=== PATIENT | female | born 1990 | race Caucasian/White ===

== ENCOUNTER 2018-04-04 21:37 | Inpatient (IN) | payer BC ==
[~2018-04-04] VITALS: Ht 165.1 cm; Wt 65.8 kg
[2018-04-04 22:36] LABS: *BILIRUBIN,URIN NEGATIVE (NEGATIVE); *BLOOD, URINE 2+ (NEGATIVE); *CLARITY,URINE SLIGHTLY CLOUDY (CLEAR); *COLOR,URINE YELLOW (YELLOW); *KETONES,URINE NEGATIVE (NEGATIVE); *PROTEIN,URINE NEGATIVE (NEGATIVE); *UROBILINOGEN,URINE 0.2 E.U./dl (NORMAL); LEUKOCYTE ESTERASE ,URINE TRACE (NEGATIVE); NITRITE, URINE POSITIVE (NEGATIVE); PH,URINE 5.5 (5.0-8.0); UGLUCOSE NEGATIVE (NEGATIVE)
[2018-04-04 22:49] LABS: *URINE HCG, QUAL NEGATIVE (NEGATIVE)
[2018-04-04 22:56] LABS: BACTERIA,URINE MANY /HPF (NONE SEEN); SQUAMOUS EPITHELIAL CELL,UR MANY /HPF (NONE SEEN); WBC,URINE 20-50 /HPF (0-3)
[2018-04-04 22:57] LABS: RENAL EPITHELIAL CELLS,URINE FEW /LPF (NONE SEEN)
--- NOTE | 2018-04-04 23:15 | NUR ---
Dr. Maciel at bedside for MSE.
[2018-04-04] MEDS ORDERED: MORPHINE SULFATE 2 MG/1 ML DISP.SYRIN IV ONE (23:30)
[2018-04-04] MEDS ORDERED: IV NORMAL SALINE 1000 ML BAG IV ONE (23:30)
[2018-04-04] MEDS ORDERED: ONDANSETRON 4 MG/2 ML VIAL IV ONE (23:30)
[2018-04-04] MEDS ORDERED: MORPHINE SULFATE 4 MG/1 ML DISP.SYRIN ONE (23:39)
[2018-04-04] MEDS ORDERED: ONDANSETRON 4 MG/2 ML VIAL ONE (23:39)
[2018-04-04 23:58] LABS: BASOPHILS % (AUTO) 0.4 % (0.0-2.0); EOSINOPHILS % (AUTO) 0.4 % (0.0-7.0); HEMATOCRIT 40.6 % (31.2-41.9); HEMOGLOBIN 13.4 g/dL (10.9-14.3); LYMPHOCYTES # (AUTO) 2.6 K/uL (20.0-40.0); LYMPHOCYTES % (AUTO) 20.8 % (20.5-51.5); MEAN CORPUSCULAR HEMOGLOBIN 28.2 uug (24.7-32.8); MEAN CORPUSCULAR HGB CONC 33 g/dL (32.3-35.6); MEAN CORPUSCULAR VOLUME 85.2 fL (75.5-95.3); MONOCYTES # (AUTO) 0.9 K/uL (2.0-10.0); MONOCYTES % (AUTO) 7.4 % (0.0-11.0); NEUTROPHILS # (AUTO) 8.9 K/uL (1.8-8.9); PLATELET COUNT (AUTO) 265 K/uL (179-408); RED BLOOD CELL COUNT(AUTO) 4.76 MIL/uL (3.63-4.92); WHITE BLOOD COUNT (AUTO) 12.6 K/uL (3.8-11.8)
[2018-04-05] MEDS ORDERED: SWABABLE VALVE TRANSFER SET EA MC ONE (00:03)
[2018-04-05] MEDS ORDERED: IV NORMAL SALINE 250 ML IV ONE (00:04)
[2018-04-05] MEDS ORDERED: IOHEXOL 300MG/ML 100 ML INFUS..BTL ONE (00:04)
--- NOTE | 2018-04-05 00:20 | NUR ---
Pt out of ER for CT.
[2018-04-05 00:35] LABS: CREATININE 0.8 mg/dL (0.6-1.3); POTASSIUM 3.7 mmol/L (3.5-5.1)
[2018-04-05 00:40] LABS: BILIRUBIN,DIRECT 0.2 mg/dL (0.0-0.2); BILIRUBIN,TOTAL 0.8 mg/dL (0.2-1.0); TOTAL PROTEIN, SERUM 8.4 g/dL (6.4-8.2)
--- NOTE | 2018-04-05 00:40 | NUR ---
Pt back to ER for CT.
--- NOTE | 2018-04-05 02:01 | NUR ---
Dr. Maciel on panel call with Piedad Jernigan NP
[2018-04-05] MEDS ORDERED: birth contro PO (02:06)
--- NOTE | 2018-04-05 02:50 | NUR ---
Report given to charge nurse Nati. Martinez
[2018-04-05 03:12] VITALS: BP 108/68
--- NOTE | 2018-04-05 03:30 | NUR ---
Received patient via gurney awake alert & oriented no SOB denies chest pain. Placed on bed comfortably, vital signs are WNL. Admission assessment initiated, patient still c/o abdominal pain 8/10 pain level. Paged Piedad Jernigan for admission orders.
--- NOTE | 2018-04-05 04:00 | NUR ---
Re-paged Piedad Jernigan NP for admission orders. Patient c/o abdominal pain.
[2018-04-05] MEDS ORDERED: HYDROMORPHONE 1 MG/1 ML DISP.SYRIN IV PRN (04:15)
[2018-04-05] MEDS: HYDROMORPHONE 2 MG/1 ML DISP.SYRIN IV PRN ×5 (04:31→21:18)
--- NOTE | 2018-04-05 04:32 | NUR ---
Dilaudid 1mg IVP adm.
[2018-04-05] MEDS ORDERED: ACETAMINOPHEN 325 MG TABLET PO PRN (05:30)
[2018-04-05] MEDS ORDERED: Z GUARD REMEDY PASTE 57 GM TUBE TOP PRN (05:30)
[2018-04-05] MEDS ORDERED: MAGNESIUM HYDROXIDE 30 ML LIQUID UDC PO PRN (05:30)
[2018-04-05] MEDS ORDERED: ONDANSETRON 4 MG/2 ML VIAL IV PRN (05:30)
[2018-04-05 05:33] VITALS: BP_SYST 100; BP_DIAS 55; BP_DIAS 59
[2018-04-05] MEDS: IV D5/ 0.9% NACL 1,000 ML IV PRN (05:40)
[2018-04-05] MEDS ORDERED: PIPERACILLIN/TAZOBACTAM/D5W 50 ML IV ONE (05:44)
[2018-04-05] MEDS: PIPERACILLIN/TAZOBACTAM/D5W 3.375 G in PREMIXED 1 EACH IV SCH ×3 (05:54→21:18)
--- NOTE | 2018-04-05 06:00 | NUR ---
Sleeping comfortably. Zosyn 3.375 gm IVPB started. Afebrile.
[2018-04-05 06:58] LABS: BASOPHILS # (AUTO) 0.1 K/uL (0.0-8.0); BASOPHILS % (AUTO) 0.6 % (0.0-2.0); EOSINOPHILS # (AUTO) 0.1 K/uL (0.0-0.7); HEMATOCRIT 33.1 % (31.2-41.9); HEMOGLOBIN 11.5 g/dL (10.9-14.3); LYMPHOCYTES # (AUTO) 2.4 K/uL (20.0-40.0); LYMPHOCYTES % (AUTO) 23.8 % (20.5-51.5); MEAN CORPUSCULAR HEMOGLOBIN 29.3 uug (24.7-32.8); MEAN CORPUSCULAR HGB CONC 35 g/dL (32.3-35.6); MEAN CORPUSCULAR VOLUME 84.4 fL (75.5-95.3); MONOCYTES # (AUTO) 1.1 K/uL (2.0-10.0); MONOCYTES % (AUTO) 10.6 % (0.0-11.0); NEUTROPHILS # (AUTO) 6.4 K/uL (1.8-8.9); PLATELET COUNT (AUTO) 223 K/uL (179-408); RED BLOOD CELL COUNT(AUTO) 3.92 MIL/uL (3.63-4.92)
[2018-04-05 07:07] LABS: CREATININE 0.8 mg/dL (0.6-1.3); MAGNESIUM 1.8 mg/dL (1.8-2.4); PHOSPHOROUS 3.7 mg/dL (2.5-4.9); POTASSIUM 3.8 mmol/L (3.5-5.1)
--- NOTE | 2018-04-05 08:00 | NUR ---
AWAKE ALERT ANXIOUS NO PAIN OR N/V AT THIS TIME RESTING IN BED WITH CALL LIGHT IN REACH KEEP NPO EXCEPT MEDICINE CONTINUE IVF
--- NOTE | 2018-04-05 09:00 | NUR ---
C/O OF ABD PAIN MEDICATION PRN GIVEN ORDER
--- NOTE | 2018-04-05 10:00 | NUR ---
DR LYLES WAS INFORM OF PATIENT WAS VERY ANXIOUS AND WOULD LIKE TO SPEAK WITH ,HE WAS AWARE AND WAITING FOR CT ABD AND PELVIS RESULT .X RAY WAS CALL TO GET RESULT L[place]
[2018-04-05 11:33] VITALS: BP 111/60
--- NOTE | 2018-04-05 13:30 | NUR ---
DR LYLES SEEN PATIENT THIS AFTERNOON AND CONSULT SURGEON /GI MD TO SEE PATIENT
[2018-04-05] MEDS ORDERED: ETHI1TAB20 PO (14:07)
--- NOTE | 2018-04-05 15:00 | NUR ---
SAMSON HAMMER ADJUSTER FOR DR NELSON WAS SEEN PATIENT
[2018-04-05 16:14] VITALS: BP 97/48
--- NOTE | 2018-04-05 17:30 | NUR ---
EAT DINNER MOD AMT NO N/V OR PAIN FAMILY AT BEDSIDE
--- NOTE | 2018-04-05 18:00 | NUR ---
STABLE HEMODYNAMIC STATUS ,PAIN UNDER CONTROL NO ACUTE DISTRESS SAFETY MEASURE PROVIDED CALL LIGHT IN REACH
[2018-04-05] MEDS: FAMOTIDINE. 20 MG/2 ML VIAL IV SCH ×2 (18:37→20:51)
[2018-04-05 20:00] VITALS: BP 106/62
--- NOTE | 2018-04-05 20:25 | NUR ---
Received patient awake & alert no SOB denies chest pain. Anxious about current condition, patient's mother in room requesting to paged Dr. Arauz, to hear about current plan of care for her daughter. Paged Dr. Arauz & discussed about family's & patient's concern. Patient's vital signs WNL. Will continue to monitor.
[2018-04-05] MEDS: ZOLPIDEM 5 MG TABLET PO PRN ×2 (20:52→22:34)
--- NOTE | 2018-04-05 21:10 | NUR ---
Seen & examined by Dr. Arauz.
[2018-04-05] MEDS ORDERED: HYDROMORPHONE 1 MG/1 ML DISP.SYRIN IV ONE (23:00)
--- NOTE | 2018-04-06 01:00 | NUR ---
Sleeping comfortably. No sign of distress.
[2018-04-06 04:00] VITALS: BP 92/45
--- NOTE | 2018-04-06 04:30 | NUR ---
Remains asleep. BP is low. IVF D5NS maintained.
[2018-04-06] MEDS: IV D5/ 0.9% NACL 1,000 ML IV PRN ×2 (05:02→18:39)
[2018-04-06] MEDS: PIPERACILLIN/TAZOBACTAM/D5W 3.375 G in PREMIXED 1 EACH IV SCH ×3 (05:07→21:43)
[2018-04-06 07:10] VITALS: BP 115/64
[2018-04-06] MEDS: HYDROMORPHONE 2 MG/1 ML DISP.SYRIN IV PRN ×5 (07:15→22:58)
--- NOTE | 2018-04-06 07:20 | NUR ---
Patient awake now, requesting for pain medication. Re-checked BP- shows 115/64. Needs attended, medicated with Dilaudid 1mg IVP . Kept comfortable. No acute resp distress. Report given to Solange CASPER.
[2018-04-06 07:26] LABS: BASOPHILS # (AUTO) 0.1 K/uL (0.0-8.0); BASOPHILS % (AUTO) 0.8 % (0.0-2.0); EOSINOPHILS # (AUTO) 0.1 K/uL (0.0-0.7); EOSINOPHILS % (AUTO) 1.5 % (0.0-7.0); HEMATOCRIT 31.7 % (31.2-41.9); HEMOGLOBIN 10.8 g/dL (10.9-14.3); LYMPHOCYTES # (AUTO) 2.2 K/uL (20.0-40.0); LYMPHOCYTES % (AUTO) 26.2 % (20.5-51.5); MEAN CORPUSCULAR HEMOGLOBIN 28.7 uug (24.7-32.8); MEAN CORPUSCULAR HGB CONC 34 g/dL (32.3-35.6); MEAN CORPUSCULAR VOLUME 84.2 fL (75.5-95.3); MONOCYTES # (AUTO) 1.1 K/uL (2.0-10.0); MONOCYTES % (AUTO) 12.6 % (0.0-11.0); NEUTROPHILS % (AUTO) 58.9 % (38.5-71.5); PLATELET COUNT (AUTO) 196 K/uL (179-408); RED BLOOD CELL COUNT(AUTO) 3.76 MIL/uL (3.63-4.92); WHITE BLOOD COUNT (AUTO) 8.5 K/uL (3.8-11.8)
[2018-04-06 07:36] LABS: BILIRUBIN,TOTAL 0.4 mg/dL (0.2-1.0); CREATININE 0.9 mg/dL (0.6-1.3); MAGNESIUM 1.8 mg/dL (1.8-2.4); POTASSIUM 3.9 mmol/L (3.5-5.1); TOTAL PROTEIN, SERUM 6.1 g/dL (6.4-8.2)
[2018-04-06] MEDS: FAMOTIDINE. 20 MG/2 ML VIAL IV SCH (08:23)
--- NOTE | 2018-04-06 08:30 | NUR ---
AWAKE ALERT COOPERATE WELL STATE PAIN MED HELP TO RELIEF PAIN WELL CONTINUE IVF ,EAT BREAKFAST MOD AMT NO N/V OR ABD PAIN RESTING QUIET IN BED WITH CALL LIGHT IN REACH
[2018-04-06 11:43] VITALS: BP 94/54
[2018-04-06] MEDS: DOCUSATE SODIUM 250 MG CAPSULE PO PRN (12:33)
[2018-04-06] MEDS: MIRALAX 17 GM POWD.PACK PO PRN (13:04)
[2018-04-06 15:58] VITALS: BP_SYST 109; BP_SYST 98; BP_DIAS 51; BP_DIAS 61
--- NOTE | 2018-04-06 16:00 | NUR ---
DR DUPREE SEE PATIENT NO NEW ORDER
--- NOTE | 2018-04-06 17:30 | NUR ---
STABLE HEMODYNAMIC STATUS ,PAIN UNDER CONTROL CONTINUE IVF AND SAFETY MEASURE PROVIDED CALL LIGHT IN REACH FAMILY AT BEDSIDE
[2018-04-06] MEDS ORDERED: ETHI1TAB20 PO (19:25)
[2018-04-06 20:00] VITALS: BP 100/58
[2018-04-06] MEDS: FAMOTIDINE 20 MG TABLET PO SCH (20:11)
--- NOTE | 2018-04-06 20:30 | NUR ---
7 PM lactic acid showed 0.5. G.Boris WESTON aware. Patient still c/o constipation. Prune juice provided.
--- NOTE | 2018-04-06 22:16 | NUR ---
[facility] called. Orders received.
[2018-04-06] MEDS ORDERED: methylPREDNISolone SOD SUCC 40 MG/ML VIAL ONE ×2 (23:01→23:02)
[2018-04-06] MEDS: methylPREDNISolone SOD SUCC 40 MG/ML VIAL IV SCH (23:04)
[2018-04-06] MEDS: ZOLPIDEM 5 MG TABLET PO PRN (23:09)
--- NOTE | 2018-04-06 23:15 | NUR ---
Solu-Medrol 40 mg IVP adm. Education about this meds initiated, reading material provided.
[2018-04-07 05:17] VITALS: BP 101/57
[2018-04-07] MEDS: HYDROMORPHONE 2 MG/1 ML DISP.SYRIN IV PRN ×3 (05:21→13:17)
[2018-04-07] MEDS: PIPERACILLIN/TAZOBACTAM/D5W 3.375 G in PREMIXED 1 EACH IV SCH ×2 (05:29→13:17)
[2018-04-07] MEDS: MIRALAX 17 GM POWD.PACK PO PRN ×2 (05:29→09:30)
[2018-04-07] MEDS: IV D5/ 0.9% NACL 1,000 ML IV PRN (05:29)
--- NOTE | 2018-04-07 06:34 | NUR ---
Still no BM at this time. Miralax provided. Assisted with all needs. Encouraged increase ambulation. Patient verbalized understanding. IVF maintained.
--- NOTE | 2018-04-07 07:30 | NUR ---
Awake, alert, oriented x 4, on moderate high back rest. IVF infusing. Abdominal pain 4/10, bearable at this time. No BM x 3 days, will follow up
[2018-04-07] MEDS: methylPREDNISolone SOD SUCC 40 MG/ML VIAL IV SCH (09:19)
[2018-04-07] MEDS: DOCUSATE SODIUM 250 MG CAPSULE PO PRN (09:30)
[2018-04-07] MEDS: FAMOTIDINE 20 MG TABLET PO SCH (11:34)
[2018-04-07 11:38] VITALS: BP 103/56
[2018-04-07 15:43] VITALS: BP 108/58
[2018-04-07] MEDS ORDERED: HYDROMORPHONE 1 MG/1 ML DISP.SYRIN IV ONE (15:45)
[2018-04-07] MEDS ORDERED: HYDROMORPHONE 2 MG/1 ML DISP.SYRIN IV ONE (16:00)
--- NOTE | 2018-04-07 16:42 | NUR ---
Went home against medical advice. Risk and benefits discussed with the patient and mother. Saline lock removed. Dr. Edwards informed.
[2018-04-08 22:10] LABS: HEPATITIS A AB, IgM Negative (Negative); HEPATITIS B SURFACE AB Non Reactive (.); HEPATITIS B SURFACE AG Negative (Negative)
[2018-04-09 07:06] LABS: *GC NAA Negative (Negative); *TRIC.VAG. NAA Negative (Negative)
[2018-04-09 14:06] LABS: *QFT MITOGEN VALUE 0.85 IU/mL (.); *QFT TB AG MINUS NIL VALUE 0.01 IU/mL (.); *QFT TB AG VALUE 0.04 IU/mL (.); *QFT TB GOLD Negative (Negative)
== END 2018-04-07 16:00 | disposition left against medical advice (07) | DRG 386 ==
LOC: ER 21:40 → MED 04-05 02:43
PROVIDERS: ADMIT Internal Medicine; ATTEND Internal Medicine
DX: K50.918 Crohn's disease, unspecified, with other complication (principal); N39.0 Urinary tract infection, site not specified; K76.0 Fatty (change of) liver, not elsewhere classified; K76.89 Other specified diseases of liver; Z80.0 Family history of malignant neoplasm of digestive organs; F17.210 Nicotine dependence, cigarettes, uncomplicated; E86.1 Hypovolemia; E83.52 Hypercalcemia; K59.00 Constipation, unspecified; K90.0 Celiac disease; R94.8 Abnormal results of function studies of other organs and systems
CPT/HCPCS: 36415; 71045; 83605; 83690; 83735; 84100; 84703; 85025; 85730; 86140; 86480; 86706; 86709; 86803; 87040; 87086; 87340; 87491; 87806; A4663; J1170; J2270; J2405; J2543; J2920; J3490; J7030; J7042; J7050; Q9967